=== PATIENT | female | born 1950 | race Caucasian/White ===

== ENCOUNTER 2021-08-03 20:44 | Emergency (ER) | payer MEDICARE, MEDICAID ==
[~2021-08-03] VITALS: Ht 162.6 cm; Wt 55.9 kg
[~2021-08-03 20:44] MED LIST: HYDR-3972
[2021-08-03] MEDS ORDERED: normal saline 1000ML IV soln IV ONE (20:55)
[2021-08-03 21:32] LABS: BASOPHILS % (AUTO) 0.1 % (0-1); EOSINOPHILS % (AUTO) 0 % (0-6); HEMATOCRIT 44.9 % (35.0-45.0); HEMOGLOBIN 15.6 g/dl (12.0-16.0); LYMPHOCYTES # (AUTO) 0.7 X10'3 (1.1-4.8); LYMPHOCYTES % (AUTO) 8.4 % (21-51); MEAN CORPUSCULAR HEMOGLOBIN 30.5 PG (27.0-31.0); MEAN CORPUSCULAR HGB CONC 34.8 g/dL (33.0-36.5); MEAN CORPUSCULAR VOLUME 87.6 FL (78-98); MEAN PLATELET VOLUME 7.8 FL (7.4-10.4); MONOCYTES # (AUTO) 0.3 X10'3 (0-0.9); MONOCYTES % (AUTO) 3.7 % (2-12); NEUTROPHILS # (AUTO) 6.9 X10'3 (1.8-7.7); NEUTROPHILS % (AUTO) 87.8 % (42-75); PLATELET COUNT 208 X10'3 (140-440); RED BLOOD COUNT 5.13 X10'6 (4.20-5.60); RED CELL DISTRIBUTION WIDTH 12.4 % (11.5-14.5); WHITE BLOOD COUNT 7.9 X10'3 (4.5-11.0)
[2021-08-03 21:38] LABS: ALANINE AMINOTRANSFERASE 18 U/L (12-78); ALBUMIN 3.8 G/DL (3.4-5.0); ALBUMIN/GLOBULIN RATIO 1.2 (1.1-1.5); ALKALINE PHOSPHATASE 87 IU/L (46-116); ANION GAP 12 (8-16); ASPARTATE AMINO TRANSFERASE 14 U/L (10-37); BILIRUBIN,TOTAL 0.4 MG/DL (0.1-1.0); BLOOD UREA NITROGEN 14 MG/DL (7-18); BUN/CREATININE RATIO 17.9 (6.6-38.0); CALCIUM 8.6 MG/DL (8.5-10.1); CHLORIDE 107 MMOL/L (99-107); CREATININE 0.78 MG/DL (0.40-0.90); GLUCOSE 147 MG/DL (70-104); POTASSIUM 3.8 MMOL/L (3.5-5.1); SODIUM 143 MMOL/L (135-145); TOTAL CARBON DIOXIDE 24.5 MMOL/L (24-32); eGFR 73 ML/MIN
[2021-08-03] MEDS ORDERED: proCHLORperazine 10 MG/2 ml inj IV ONE (21:40)
[2021-08-03 21:52] LABS: COLOR,URINE YELLOW (Yellow); GLUCOSE, URINE NEGATIVE (Neg); KETONES,URINE 15 mg/dl (Neg); LEUKOCYTE ESTERASE ,URINE NEGATIVE (Neg); NITRITES, URINE NEGATIVE (Neg); OCCULT BLOOD,URINE MODERATE (Neg); PH,URINE 6.5 (4.8-8.0); PROTEIN,URINE TRACE mg/dl (Neg); UROBILINOGEN,URINE 0.2 E.U/dL (0.2-1.0)
[2021-08-03 21:53] LABS: CLARITY,URINE SLIGHTLY CLOUDY (Clear); UA COLLECTION TYPE CLN CATCH MIDSTREAM
[2021-08-03 21:59] LABS: MUCUS STRANDS MANY /LPF (Neg); SQUAMOUS EPITHELIAL CELL,UR MANY /LPF (FEW)
[2021-08-03 22:02] LABS: BACTERIA,URINE FEW /HPF (Neg); WBC,URINE 0-4 /HPF (0-4)
[2021-08-03] MEDS ORDERED: cephalexin 500mg capsule PO ONE (22:35)
[2021-08-03 22:46] VITALS: BP 140/75
== END 2021-08-03 22:45 | disposition home or self-care (01) ==
LOC: ER 20:46
DX: R30.0 Dysuria (principal); R31.9 Hematuria, unspecified; Z20.822 Contact with and (suspected) exposure to COVID-19; M54.50 Low back pain, unspecified; R19.7 Diarrhea, unspecified; I10 Essential (primary) hypertension; M19.90 Unspecified osteoarthritis, unspecified site; Z90.710 Acquired absence of both cervix and uterus; Z88.0 Allergy status to penicillin; Z79.899 Other long term (current) drug therapy
CPT/HCPCS: 36415; 80053; 81001; 84145; 85025; 87635; 96361; 96374; 99283; C9803; J0780; J7030

== ENCOUNTER 2025-06-21 07:52 | Outpatient (CLI) | payer MEDICARE, MEDICAID ==
[2025-06-21 08:39] LABS: CREATININE 0.55 MG/DL (0.40-0.90); eGFR > 90 ML/MIN
[2025-06-21] MEDS ORDERED: iohexol 300mg/ml 100ml inj. ONE (08:57)
--- NOTE | 2025-06-21 12:19 | RADIOLOGY REPORT ---
CLINICAL HISTORY: RIGHT UPPER QUADRANT PAIN TECHNIQUE: CT of the abdomen and pelvis was performed with IV contrast. This exam was performed according to our departmental dose optimization program. Up-to-date CT equipment and radiation dose reduction techniques are utilized as appropriate. 100 mL Omnipaque 300 was administered intravenously. CTDI 9 DLP 406 COMPARISON: None FINDINGS: Abdomen/Pelvis: The spleen, adrenal glands, kidneys, and liver are unremarkable. The gallbladder is absent. The uterus is absent. The bladder is not well distended and therefore not well evaluated. There is a 7.9 x 1.9 x 9.2 cm low-density fluid collection within the left lower rectus sheath. The abdominal aorta is normal in course and caliber. There are moderate atherosclerotic changes. There is no free intraperitoneal air or fluid. There is no enlarged abdominal or pelvic lymph node. There is no small bowel wall thickening or dilatation. The appendix is not seen. There is no focal inflammatory process in its expected location. There is gastric antral mural thickening. There is moderate ascending and transverse colon wall thickening. Is a moderate amount of stool in the colon. This mild sigmoid colon diverticulosis. Other: The imaged lower thorax is unremarkable. No acute osseous abnormality is evident. IMPRESSION: Acute colitis involving the ascending and transverse colon. Gastric antral mural thickening, likely gastritis. 7.9 x 1.9 x 9.2 cm low-density fluid collection within the left rectus sheath. Favor chronic intramuscular hematoma. Constipation. Mild sigmoid colon diverticulosis. Hysterectomy. Cholecystectomy.
== END 2025-06-21 23:59 | disposition home or self-care (01) ==
LOC: RAD 07:52
PROVIDERS: ATTEND Nurse Practitioner Family
DX: K57.30 Diverticulosis of large intestine without perforation or abscess without bleeding (principal); R10.11 Right upper quadrant pain; Z90.49 Acquired absence of other specified parts of digestive tract; I70.0 Atherosclerosis of aorta; K52.9 Noninfective gastroenteritis and colitis, unspecified
CPT/HCPCS: 36415; 74177; 82565; 84520; Q9967